=== PATIENT | female | born 1980 | race Caucasian/White ===

== ENCOUNTER 2017-02-25 21:57 | Emergency (ER) | payer OTHER ==
--- NOTE | ~2017-02-25 | CR211 ---
[facility] [place] [facility] A Service of [facility] RADIOLOGY TEXT RESULTS PATIENT: JULIA BENSON LOCATION: SED : 78 UNIT #: [id number] AGE: [address]: Pedro Tapia MD SEX: F ORDER DR: [id number] [place] [id number] E MR#: [id number] Acc #: [id number] NAME: JULIA BENSON : 1980 SEX: F STUDY DATE/TIME: 02/25/2017 22:04 UNIT: SED ROOM: STUDY DESCRIPTION: CR Ribs Uni 2 View W PA Ch Rt Attending Physician: Pedro Tapia M.D. Ordering Physician: Pedro Tapia M.D. Primary Care Physician: Primary Care Physician No MEDICAL IMAGING REPORT This report is preliminary unless electronic signature is present. EXAM PA chest with AP and oblique views of the right ribs. COMPARISON None INDICATIONS 36-year-old female with right-sided rib pain after wrestling today. FINDINGS Cardiomediastinal silhouette is normal. No evidence of pneumothorax, pleural effusion or acute airspace disease. There are cholecystectomy clips. No evidence of rib fracture. IMPRESSION No acute radiographic abnormality. No evidence of rib fracture. Dictated by... Adrian Cannon M.D. THIS IS AN ELECTRONICALLY VERIFIED REPORT Adrian Cannon M.D. at 03/01/2017 8:06 PM Yue TD: 02/26/2017 07:17 JOB #: [id number] MEDICAL IMAGING REPORT Page 1 of 1
[~2017-02-25 21:57] MED LIST: EFFEXOR; LAMICTAL; TOPAMAX
== END 2017-02-25 23:27 | disposition home or self-care (01) ==
LOC: SED 21:57
DX: S29.9XXA Unspecified injury of thorax, initial encounter (principal); F17.200 Nicotine dependence, unspecified, uncomplicated; F32.9 Major depressive disorder, single episode, unspecified
CPT/HCPCS: 71101; 99283